=== PATIENT | female | born 1950 | race American Indian/Alaskan Native ===

== ENCOUNTER 2020-12-14 21:15 | Observation (INO) | payer MEDICARE, OTHER ==
[2020-12-14] MEDS ORDERED: SODIUM CHLORIDE 0.9% 500 ML 500 ML IV ONE (21:56)
--- NOTE | 2020-12-14 22:01 | Emergency Department Report ---
ED Syncope HPI - General Chief Complaint: Syncope Stated Complaint: HYPOTENSION/WEAKNESS Time Seen by Provider: 12/14/20 21:44 Source: patient - History of Present Illness Initial Comments: 70 yo F who presents after loss of consciousness today. This was witnessed by her daughter. She states it only occurred for a minute. When she awoke she was pretty normal. Her eyes rolled back which concerned her daughter. They note she did not each much today but had some coffee for breakfast. She was sitting in the garage smoking marijuana with her daughter when this happened. EMS states her BP was low. Timing/Prior Episodes: single episode today Precipitating Factors: Positive: lightheadedness Context: sitting Loss of Consciousness: brief (seconds) Current Symptoms: back to normal - Related Data Allergies/Adverse Reactions: Allergies No Known Allergies Allergy (Verified 12/14/20 22:34) Home Medications: Ambulatory Orders Latanoprost 0.005% [Xalatan 0.005%] 1 drop OP QPM 05/21/15 Losartan [Cozaar] 100 mg PO QDAY 05/21/15 ED Review of Systems ROS: Stated complaint: HYPOTENSION/WEAKNESS Other details as noted in HPI Constitutional: denies: diaphoresis Eyes: denies: eye discharge ENT: denies: dental pain Respiratory: denies: shortness of breath Cardiovascular: denies: chest pain Endocrine: denies: excessive sweating Gastrointestinal: denies: abdominal pain, nausea, vomiting Genitourinary: denies: urgency, dysuria Musculoskeletal: denies: back pain Skin: denies: rash Neurological: denies: headache Psychiatric: denies: anxiety, depression Hematological/Lymphatic: denies: easy bleeding ED Past Medical Hx - Past Medical History Hx Hypertension: Yes Hx Renal Disease: No Hx Arthritis: Yes Additional medical history: CATARACTS - Surgical History Hx Cholecystectomy: Yes - Social History Smoking Status: Former Smoker - Medications Home Medications: Home Medications Medication Instructions Recorded Confirmed Last Taken Type Latanoprost 0.005% [Xalatan 0.005%] 1 drop OP QPM 05/21/15 05/23/15 05/22/15 History Losartan [Cozaar] 100 mg PO QDAY 05/21/15 05/23/15 05/23/15 08:30 History ED Physical Exam - General Limitations: No Limitations General appearance: alert, in no apparent distress - Head Head exam: Present: atraumatic, normocephalic - Eye Eye exam: Present: normal appearance Pupils: Present: normal accommodation - ENT ENT exam: Present: normal exam - Neck Neck exam: Present: normal inspection - Respiratory Respiratory exam: Present: normal lung sounds bilaterally - Cardiovascular Cardiovascular Exam: Present: regular rate, normal rhythm, normal heart sounds - GI/Abdominal GI/Abdominal exam: Present: soft. Absent: distended, tenderness - Rectal Rectal exam: Present: deferred - Extremities Exam Extremities exam: Present: normal inspection, full ROM, normal capillary refill. Absent: tenderness, pedal edema - Back Exam Back exam: Present: normal inspection - Neurological Exam Neurological exam: Present: alert, oriented X3 - Psychiatric Psychiatric exam: Present: normal affect, normal mood - Skin Skin exam: Present: warm, dry, intact ED Course Vital Signs 12/14/20 12/14/20 22:00 22:45 Temperature 97.7 F Pulse Rate 63 Pulse Rate [ 66 Lying] Respiratory 14 Rate Blood Pressure 112/57 [Left] Blood Pressure 105/45 [Lying] O2 Sat by Pulse 97 Oximetry - Reevaluation(s) Reevaluation #1: 12/14/20 23:14 I reevaluated the patient. Her blood pressure is currently 94/36. IV fluids are infusing. We will plan to give patient an additional liter for total of 1.5 L but I do think patient likely to be admitted for IV fluid rehydration and syncopal work-up. Reevaluation #2: 12/15/20 00:00 I reviewed patient's labs which are notable for an elevated creatinine to 1.91 patient's previous was 1.2. Given this and given patient's mild hypotension plan for admission for IV fluid rehydration and further syncope work-up. ED Medical Decision Making - Lab Data Result diagrams: 12/14/20 22:44 12/14/20 22:44 - EKG Data -: EKG Interpreted by Me EKG shows normal: sinus rhythm Rate: normal (61) - EKG Data Interpretation: LVH - Medical Decision Making 70-year-old female with history of hypertension who presents to the emergency department with complaint of syncopal episode. Patient did not eat all day and was smoking marijuana with her daughter prior to the syncopal episode. Lasted approximately 1 minute. EMS arrived they noted the patient's blood pressure was low. Her blood pressure is now normal. Plan to obtain orthostatic blood pressures, EKG, basic labs. Will monitor patient on telemetry. Will reassess after IV fluids and orthostatic pressures to determine if this was just a vasovagal syncope or secondary to dehydration due to lack of p.o. intake. If patient is improved she may be discharged however patient blood pressure drops or complains of feeling lightheaded or dizzy she may require admission for sync opal work-up. Critical care attestation.: If time is entered above; I have spent that time in minutes in the direct care of this critically ill patient, excluding procedure time. ED Disposition Clinical Impression: Syncope, HECTOR (acute kidney injury) Disposition: OP ADMIT IP TO THIS HOSP Is pt being admited?: Yes Does the pt Need Aspirin: No Condition: Stable Instructions: Syncope (ED) Time of Disposition: 00:01
--- NOTE | 2020-12-14 22:33 | XRay Report ---
CHEST 1 VIEW 12/14/2020 9:58 PM INDICATION / CLINICAL INFORMATION: syncope. COMPARISON: None available. FINDINGS: SUPPORT DEVICES: None. HEART / MEDIASTINUM: No significant abnormality. LUNGS / PLEURA: No significant pulmonary or pleural abnormality. No pneumothorax. ADDITIONAL FINDINGS: No significant additional findings. IMPRESSION: No acute abnormality. Signer Name: Mauricio Wilder MD Signed: 12/14/2020 10:28 PM Workstation Name: [id number]
[2020-12-14 23:12] LABS: Basophils # (Auto) 0.1 K/mm3 (0.0-0.1); Basophils % (Auto) 0.7 % (0.0-1.8); Eosinophils # (Auto) 0.1 K/mm3 (0.0-0.4); Eosinophils % (Auto) 1.5 % (0.0-4.3); Hematocrit 34.8 % (30.3-42.9); Lymphocytes # (Auto) 1.8 K/mm3 (1.2-5.4); Lymphocytes % (Auto) 18.3 % (13.4-35.0); Mean Corpuscular HGB Conc 34 % (30-34); Mean Corpuscular Volume 98 fl (79-97); Monocytes # (Auto) 0.7 K/mm3 (0.0-0.8); Monocytes % (Auto) 7.4 % (0.0-7.3); Platelet Count 225 K/mm3 (140-440); Red Blood Count 3.55 M/mm3 (3.65-5.03); Red Cell Distribution Width 14.3 % (13.2-15.2)
[2020-12-14] MEDS ORDERED: SODIUM CHLORIDE 0.9% 1000 ML 1,000 ML IV ONE (23:16)
[2020-12-14 23:33] LABS: Albumin 4.3 g/dL (3.9-5); Calcium 9.7 mg/dL (8.4-10.2)
[2020-12-15] MEDS ORDERED: SENNOSIDES 8.6 MG TAB PO PRN (00:50)
[2020-12-15] MEDS ORDERED: ONDANSETRON 4 MG/2 ML INJ IV PRN (00:50)
[2020-12-15] MEDS ORDERED: MAGNESIUM HYDROXIDE (MOM) ORAL LIQD UDC PO PRN (01:07)
[2020-12-15] MEDS ORDERED: METOCLOPRAMIDE 10 MG/2 ML INJ IV PRN ×2 (01:07→02:59)
[2020-12-15] MEDS ORDERED: ALUM-MAG HYDROXIDE-SIMETHICONE 200-200-20MG/5ML ORAL LIQD 30 ML PO PRN (01:07)
[2020-12-15] MEDS ORDERED: traMADol 50 MG TAB PO PRN (01:15)
[2020-12-15] MEDS ORDERED: traZODone 50 MG TAB PO PRN (01:15)
--- NOTE | 2020-12-15 01:17 | History and Physical Report ---
History of Present Illness Date of examination: 12/15/20 Date of admission: 12/15/20 Chief complaint: DIZZINESS History of present illness: 70 yo F who presents after loss of consciousness today. This was witnessed by her daughter. She states it only occurred for a minute. When she awoke she was pretty normal. Her eyes rolled back which concerned her daughter. They note she did not each much today but had some coffee for breakfast. She was sitting in the garage smoking marijuana with her daughter when this happened. EMS states her BP was low. ED work-up shows WBC 9.6, hemoglobin 12.0, platelets 225, creatinine 1.9, sodium 139, potassium 4.4, troponin 0 0.010, chest x-ray no acute finding, CT of the head no acute intracranial abnormality. Patient seen in ED at bedside. Patient alert oriented x3. Patient said she came due to dizziness syncope. Blood pressure low at the time of admission. Patient was given infection bolus at the time of assessment blood pressure up to 104/52. Patient denies tobacco use alcohol, illicit drug use. Past History Past Medical History: hypertension Past Surgical History: total hip replacement, Other (back surgery) Social history: no significant social history, lives with family Family history: no significant family history Medications and Allergies Allergies Allergy/AdvReac Type Severity Reaction Status Date / Time No Known Allergies Allergy Verified 12/14/20 22:34 Home Medications Medication Instructions Recorded Confirmed Last Taken Type Latanoprost 0.005% [Xalatan 0.005%] 1 drop OP QPM 05/21/15 05/23/15 05/22/15 History Losartan [Cozaar] 100 mg PO QDAY 05/21/15 05/23/15 05/23/15 08:30 History Review of Systems Constitutional: weakness Ears, nose, mouth and throat: no epistaxis, no bleeding gums Cardiovascular: lightheadedness Gastrointestinal: no melena Rectal: no hemorrhoids Neurological: no head injury Psychiatric: anxiety Hematologic/Lymphatic: no easy bruising, no easy bleeding Allergic/Immunologic: no urticaria Exam - Constitutional Vitals: Temp Pulse Resp BP Pulse Ox 97.7 F 69 16 109/53 97 12/14/20 22:00 12/15/20 00:27 12/15/20 00:27 12/15/20 00:27 12/15/20 00:27 General appearance: Present: mild distress, well-nourished - EENT Eyes: Present: PERRL ENT: hearing intact, clear oral mucosa - Neck Neck: Present: supple, normal ROM - Respiratory Respiratory effort: normal Respiratory: bilateral: CTA - Cardiovascular Heart rate: 69 Heart Sounds: Present: S1 & S2. Absent: rub, click - Extremities Extremities: pulses symmetrical, No edema Peripheral Pulses: within normal limits - Abdominal General gastrointestinal: Present: soft, non-tender, non-distended, normal bowel sounds Female genitourinary: Present: normal - Integumentary Integumentary: Present: clear, warm, dry - Musculoskeletal Musculoskeletal: gait normal, strength equal bilaterally - Psychiatric Psychiatric: appropriate mood/affect, intact judgment & insight, cooperative - Neurologic Neurologic: CNII-XII intact, moves all extremities - Allied Health Allied health notes reviewed: nursing, PT HEART Score - HEART Score Troponin: Troponin T < 0.010 ng/mL (0.00-0.029) 12/14/20 22:44 Results - Labs CBC & Chem 7: 12/14/20 22:44 12/14/20 22:44 Labs: Abnormal lab results 12/14/20 12/14/20 Range/Units 22:44 22:44 RBC 3.55 L (3.65-5.03) M/mm3 MCV 98 H (79-97) fl MCH 34 H (28-32) pg Garvin % (Auto) 7.4 H (0.0-7.3) % Seg Neutrophils % 72.1 H (40.0-70.0) % BUN 37 H (7-17) mg/dL Creatinine 1.9 H (0.6-1.2) mg/dL Glucose 133 H (65-100) mg/dL Assessment and Plan - Patient Problems (1) HECTOR (acute kidney injury) Current Visit: No Status: Acute Plan to address problem: Likely secondary to dehydration Monitor kidney function Continue IV hydration Advised to avoid nephrotoxic drugs. (2) Syncope Current Visit: No Status: Acute Plan to address problem: Most likely secondary to dehydration Was given IV bolus with normal saline. Her blood pressure has improved Safety and fall Precaution at all time Echocardiogram follow-up with results CT of the head negative. Check CTA of the neck rule out carotid stenosis (3) Essential (primary) hypertension Current Visit: No Status: Acute Plan to address problem: Patient has history of hypertension Patient blood pressure was low on admission Monitor blood pressure and hold home antihypertensive. (4) Full code status Current Visit: Yes Status: Acute Plan to address problem: Patient is a full code (5) DVT prophylaxis Current Visit: Yes Status: Acute Plan to address problem: Subcutaneous heparin
--- NOTE | 2020-12-15 02:30 | Cat Scan Report ---
CT head/brain wo con INDICATION: syncope. TECHNIQUE: Routine CT head. All CT scans at this location are performed using CT dose reduction for A JOSELITO by means of automated exposure control. COMPARISON: None. FINDINGS: Intracranial: Pierre-white matter differentiation is maintained. No intracranial hemorrhage. No extra a xial collection. No hydrocephalus. No herniation. Sinuses: Paranasal sinuses and mastoid air cells are essentially clear. Orbits: Globes are intact. Calvarium: No acute fracture. IMPRESSION: 1. No acute intracranial abnormality. Signer Name: Vincent Jules MD Signed: 12/15/2020 2:25 AM Workstation Name: [id number]
[2020-12-15] MEDS: D5W/0.9% NACL 1,000 ML IV SCH ×2 (05:33→22:03)
[2020-12-15 06:01] LABS: Bacteria,Urine 2+ /HPF (Negative); Bilirubin,Urine NEG (Negative); Blood,Urine NEG (Negative); Color,Urine Yellow (Yellow); Hyaline Casts,Urine 1 /LPF; Mucus,Urine 1+ /HPF; Protein,Urine <15 mg/dL mg/dL (Negative); Urobilinogen,Urine < 2.0 mg/dL (<2.0)
[2020-12-15] MEDS: HEPARIN 5,000 UNIT/1 ML VIAL SUB-Q SCH ×2 (09:44→22:03)
[2020-12-15] MEDS ORDERED: LOSARTAN 50 MG TAB PO SCH (10:00)
[2020-12-15] MEDS ORDERED: NON-FORMULARY EACH (Losartan [Cozaar] 100 MG Tablet) PO SCH (10:00)
--- NOTE | 2020-12-15 11:07 | Event Note ---
Date: 12/15/20 Brief progress note Patient seen and examined History obtained She is alert and oriented and offers no specific complaints This is the second IMS visit of the day Lab results reviewed Denies any symptoms preceding syncope She smokes marijuana 3-4 times a week States she sees Dr. Fields for her hypertension but is not aware of having renal disease Nephrology and cardiology consulted Telemetry Troponin x2 -
--- NOTE | 2020-12-15 11:32 | Consultation ---
History of Present Illness Consult date: 12/15/20 Requesting physician: MEMO BUNN Consult reason: syncope History of present illness: 70-year-old female with hypertension smokes marijuana was smoking marijuana with her daughter in the garage had a fan going. Patient felt lightheadedness and as per the daughter eyes rolled back and passed out. Patient when she woke up knew where she was at but was weak and could not get up. EMS was called found to be hypotensive patient start IV fluids. Patient this morning is feeling much better found to have renal sufficiency creatinine 1.9 unclear if this is new or old. Denies any chest pain shortness of breath. Patient does state lack of intake for the last few days. No fever no chills was vaccinated with the COVID- 19 Past History Past Medical History: hypertension Past Surgical History: total hip replacement, Other (back surgery) Social history: no significant social history, lives with family Family history: no significant family history Medications and Allergies Allergies Allergy/AdvReac Type Severity Reaction Status Date / Time No Known Allergies Allergy Verified 12/14/20 22:34 Home Medications Medication Instructions Recorded Confirmed Last Taken Type Latanoprost 0.005% [Xalatan 0.005%] 1 drop OP QPM 05/21/15 05/23/15 05/22/15 History Losartan [Cozaar] 100 mg PO QDAY 05/21/15 05/23/15 05/23/15 08:30 History Active Meds: Active Medications Acetaminophen (Acetaminophen 325 Mg Tab) 650 mg PO Q4H PRN PRN Reason: Pain MILD(1-3)/Fever >100.5/BLACKMAN Al Hydrox/Mg Hydrox/Simethicone (Alum-Mag Hydroxide-Simethicone [id number]/5ml Oral Liqd 30 Ml) 30 ml PO Q4H PRN PRN Reason: Indigestion Heparin Sodium (Porcine) (Heparin 5,000 Unit/1 Ml Vial) 5,000 unit SUB-Q Q12HR GISELE Last Admin: 12/15/20 09:44 Dose: 5,000 unit Documented by: Dextrose/Sodium Chloride (D5ns) 1,000 mls @ 75 mls/hr IV DIRECT GISELE Last Admin: 12/15/20 05:33 Dose: 75 mls/hr Documented by: Latanoprost (Latanoprost 0.005% Ophth Soln 2.5 Ml) 1 drops OU QPM GISELE Magnesium Hydroxide (Magnesium Hydroxide (Mom) Oral Liqd Udc) 30 ml PO Q4H PRN PRN Reason: Constipation Metoclopramide HCl (Metoclopramide 10 Mg/2 Ml Inj) 5 mg IV Q6H PRN PRN Reason: Nausea And Vomiting Ondansetron HCl (Ondansetron 4 Mg/2 Ml Inj) 4 mg IV Q8H PRN PRN Reason: Nausea And Vomiting Senna (Sennosides 8.6 Mg Tab) 8.6 mg PO Q12HR PRN PRN Reason: Constipation Sodium Chloride (Sodium Chloride 0.9% 10 Ml Flush Syringe) 10 ml IV PRN PRN PRN Reason: LINE FLUSH Tramadol HCl (Tramadol 50 Mg Tab) 50 mg PO Q6H PRN PRN Reason: Pain, Moderate (4-6) Trazodone HCl (Trazodone 50 Mg Tab) 50 mg PO QHS PRN PRN Reason: Insomnia Review of Systems All systems: negative (As per the HPI) Physical Examination Vital Signs Temp Pulse Resp BP Pulse Ox 97.7 F 63 14 112/57 97 12/14/20 22:00 12/14/20 22:00 12/14/20 22:00 12/14/20 22:00 12/14/20 22:00 General appearance: no acute distress, well-nourished HEENT: Positive: PERRL, Mucus Membranes Moist Neck: Positive: neck supple, trachea midline Cardiac: Positive: Reg Rate and Rhythm, S1/S2. Negative: Audible Murmur Lungs: Positive: clear to auscultation, Normal Breath Sounds Neuro: Positive: Grossly Intact Abdomen: Positive: Soft, Active Bowel Sounds. Negative: Tender, Distended Female genitourinary: deferred Skin: Positive: Clear Incision: Cardiac Cath Site Musculoskeletal: No Pain, Normal Range of Motion Extremities: Present: normal. Absent: edema Results 12/14/20 22:44 12/14/20 22:44 Cardiac Enzymes 12/14/20 Range/Units 22:44 AST 16 (5-40) units/L CBC 12/14/20 Range/Units 22:44 WBC 9.6 (4.5-11.0) K/mm3 RBC 3.55 L (3.65-5.03) M/mm3 Hgb 12.0 (10.1-14.3) gm/dl Hct 34.8 (30.3-42.9) % Plt Count 225 (140-440) K/mm3 Lymph # (Auto) 1.8 (1.2-5.4) K/mm3 Lee # (Auto) 0.7 (0.0-0.8) K/mm3 Eos # (Auto) 0.1 (0.0-0.4) K/mm3 Baso # (Auto) 0.1 (0.0-0.1) K/mm3 Comprehensive Metabolic Panel 12/14/20 Range/Units 22:44 Sodium 139 (137-145) mmol/L Potassium 4.4 (3.6-5.0) mmol/L Chloride 105.5 (98-107) mmol/L Carbon Dioxide 22 (22-30) mmol/L BUN 37 H (7-17) mg/dL Creatinine 1.9 H (0.6-1.2) mg/dL Glucose 133 H (65-100) mg/dL Calcium 9.7 (8.4-10.2) mg/dL AST 16 (5-40) units/L ALT 10 (7-56) units/L Alkaline Phosphatase 70 (35-129) units/L Total Protein 6.5 (6.3-8.2) g/dL Albumin 4.3 (3.9-5) g/dL Assessment and Plan 70-year-old female with hypertension unclear acute or chronic renal sufficiency had vasovagal syncope we will get an echocardiogram no arrhythmias on the monitor need EKG patient is not orthostatic agree with IV hydration - Patient Problems (1) Marijuana smoker Current Visit: Yes Status: Chronic (2) HECTOR (acute kidney injury) Current Visit: No Status: Acute (3) Essential (primary) hypertension Current Visit: No Status: Chronic (4) Syncope Current Visit: No Status: Acute Qualifiers: Syncope type: vasovagal syncope Qualified Code(s): R55 - Syncope and collapse
[2020-12-15] MEDS: ACETAMINOPHEN 325 MG TAB PO PRN (13:50)
[2020-12-15] MEDS ORDERED: LATANOPROST 0.005% OPHTH SOLN 2.5 ML OU SCH (18:00)
[2020-12-16 06:01] LABS: Basophils # (Auto) 0.1 K/mm3 (0.0-0.1); Basophils % (Auto) 1.1 % (0.0-1.8); Eosinophils # (Auto) 0.3 K/mm3 (0.0-0.4); Eosinophils % (Auto) 3.6 % (0.0-4.3); Hematocrit 31.7 % (30.3-42.9); Hemoglobin 10.7 gm/dl (10.1-14.3); Lymphocytes # (Auto) 3.7 K/mm3 (1.2-5.4); Lymphocytes % (Auto) 40.2 % (13.4-35.0); Mean Corpuscular HGB Conc 34 % (30-34); Mean Corpuscular Volume 98 fl (79-97); Monocytes # (Auto) 0.6 K/mm3 (0.0-0.8); Monocytes % (Auto) 6.8 % (0.0-7.3); Platelet Count 225 K/mm3 (140-440); Red Blood Count 3.25 M/mm3 (3.65-5.03)
[2020-12-16 06:19] LABS: Calcium 8.8 mg/dL (8.4-10.2)
[2020-12-16] MEDS: D5W/0.9% NACL 1,000 ML IV SCH (09:25)
[2020-12-16] MEDS: ACETAMINOPHEN 325 MG TAB PO PRN (09:25)
[2020-12-16] MEDS: HEPARIN 5,000 UNIT/1 ML VIAL SUB-Q SCH (09:27)
--- NOTE | 2020-12-16 09:55 | Consultation ---
History of Present Illness - Reason for Consult Consult date: 12/16/20 acute renal failure, chronic renal failure Requesting physician: MEMO BUNN - History of Present Illness This is a 70 yo F with past medical history of hypertension, obesity, CKD stage 3a with baseline Cr around 1.2-1.4mg/dl, follows up with Dr Fields in our group, who presents with an episode of loss of consciousness for about a minute, which was witnessed by her daughter, with her eyes rolling back. As per daughter, she was sitting in the garage smoking marijuana with her daughter when this happened. EMS states her BP was low. In ER patient was found to have borderline low BP at 105/45mmHg, received IVF bolus. Chest x-ray no acute finding, CT of the head no acute intracranial abnormality. Labs showed elevated BUN/Cr at 37/1.9mg/dl. renal consult is requested for management of HECTOR on CKD Past History Past Medical History: hypertension Past Surgical History: total hip replacement, Other (back surgery) Social history: no significant social history, lives with family Family history: no significant family history Medications and Allergies Allergies Allergy/AdvReac Type Severity Reaction Status Date / Time No Known Allergies Allergy Verified 12/14/20 22:34 Home Medications Medication Instructions Recorded Confirmed Last Taken Type Losartan [Cozaar] 100 mg PO QDAY 05/21/15 05/23/15 05/23/15 08:30 History Acetaminophen [Acetaminophen TAB] 650 mg PO Q4H PRN tablet 12/16/20 Unknown Rx Amlodipine Besylate [Norvasc] 10 mg PO DAILY 12/16/20 12/16/20 12/15/20 08:00 H istory Aspirin [Aspirin BABY CHEW TAB] 81 mg PO QDAY 12/16/20 12/16/20 12/15/20 08:00 History Latanoprost 0.005% 1 drops OU QPM bottle 12/16/20 Unknown Rx buPROPion HCL [Bupropion HCl Sr] 150 mg PO BID 12/16/20 12/16/20 12/15/20 08:00 History Active Meds: Active Medications Acetaminophen (Acetaminophen 325 Mg Tab) 650 mg PO Q4H PRN PRN Reason: Pain MILD(1-3)/Fever >100.5/BLACKMAN Last Admin: 12/16/20 09:25 Dose: 650 mg Documented by: Al Hydrox/Mg Hydrox/Simethicone (Alum-Mag Hydroxide-Simethicone [id number]/5ml Oral Liqd 30 Ml) 30 ml PO Q4H PRN PRN Reason: Indigestion Heparin Sodium (Porcine) (Heparin 5,000 Unit/1 Ml Vial) 5,000 unit SUB-Q Q12HR GISELE Last Admin: 12/16/20 09:27 Dose: 5,000 unit Documented by: Dextrose/Sodium Chloride (D5ns) 1,000 mls @ 75 mls/hr IV DIRECT GISELE Last Admin: 12/16/20 09:25 Dose: 75 mls/hr Documented by: Latanoprost (Latanoprost 0.005% Ophth Soln 2.5 Ml) 1 drops OU QPM GISELE Last Admin: 12/15/20 19:37 Dose: Not Given Documented by: Magnesium Hydroxide (Magnesium Hydroxide (Mom) Oral Liqd Udc) 30 ml PO Q4H PRN PRN Reason: Constipation Metoclopramide HCl (Metoclopramide 10 Mg/2 Ml Inj) 5 mg IV Q6H PRN PRN Reason: Nausea And Vomiting Ondansetron HCl (Ondansetron 4 Mg/2 Ml Inj) 4 mg IV Q8H PRN PRN Reason: Nausea And Vomiting Senna (Sennosides 8.6 Mg Tab) 8.6 mg PO Q12HR PRN PRN Reason: Constipation Sodium Chloride (Sodium Chloride 0.9% 10 Ml Flush Syringe) 10 ml IV PRN PRN PRN Reason: LINE FLUSH Last Admin: 12/16/20 09:25 Dose: 10 ml Documented by: Tramadol HCl (Tramadol 50 Mg Tab) 50 mg PO Q6H PRN PRN Reason: Pain, Moderate (4-6) Trazodone HCl (Trazodone 50 Mg Tab) 50 mg PO QHS PRN PRN Reason: Insomnia Review of Systems All systems: negative Constitutional: fatigue, weakness Exam - Vital Signs Vital signs: Vital Signs Temp Pulse Resp BP Pulse Ox 97.7 F 63 14 112/57 97 12/14/20 22:00 12/14/20 22:00 12/14/20 22:00 12/14/20 22:00 12/14/20 22:00 - General Appearance General appearance: well-developed, well-nourished, appears stated age EENT: ATNC, PERRL, mucous membranes moist Neck: Present: neck supple Respiratory: Clear to Ascultation Heart: regular, S1S2 Gastrointestinal: Present: normoactive bowel sounds Integumentary: no rash, other (no edema ) Neurologic: no focal deficit, alert and oriented x3, strength 5/5, CN 3-12 intact Psychiatric: mood/affect appropriate, cooperative Results - Lab Results 12/16/20 04:30 12/16/20 04:30 Most recent lab results Calcium 8.8 mg/dL (8.4-10.2) 12/16/20 04:30 Assessment and Plan - Patient Problems (1) Acute kidney injury Current Visit: Yes Status: Acute Plan to address problem: likely secondary to pre-renal azotemia in the setting of dehydration, decreased po intake. Renal function improved promptly after IVF with Cr down to 1.1mg/dl better than her recent baseline renal function. Cont to avoid further nephroto xins, NSAIDs, IV contrast. Pt is otherwise stable to be discharged from renal stand point with outpatient f/u in [address] Fields (2) Hypertensive chronic kidney disease with stage 1 through stage 4 chronic kidney disease, or unspecified chronic kidney disease Current Visit: Yes Status: Acute Plan to address problem: Monitor BP on current meds (3) Chronic kidney disease, stage 3a Current Visit: Yes Status: Acute Plan to address problem: likely secondary to underlying hypertensive nephrosclerosis. stable, no further work up required (4) Syncope Current Visit: Yes Status: Acute Plan to address problem: likely 2/2 dehydration, mental status back to baseline
--- NOTE | 2020-12-16 10:19 | Discharge Summary ---
Providers - Providers Date of Admission: 12/15/20 01:37 Date of discharge: 12/16/20 Attending physician: MEMO BUNN 12/15/20 08:22 Consult to Physician [CONS] Routine Comment: Consulting Provider: BERNICE TORRES Physician Instructions: Reason For Exam: syncope 12/15/20 11:02 Consult to Physician [CONS] Routine Comment: Consulting Provider: CONTRERAS ARREOLA Physician Instructions: Reason For Exam: ?HECTOR vs CKD Primary care physician: DEVELOPMENT INTERN Hospitalization Reason for admission: Syncope Condition: Stable Hospital course: 70-year-old female with hypertension smokes marijuana was smoking marijuana with her daughter in the garage had a fan going. Patient felt lightheadedness and as per the daughter eyes rolled back and passed out. Patient when she woke up knew where she was at but was weak and could not get up. EMS was called found to be hypotensive patient start IV fluids. Patient this morning is feeling much better found to have renal sufficiency creatinine 1.9 unclear if this is new or old. Denies any chest pain shortness of breath. Patient does state lack of intake for the last few days. No fever no chills was vaccinated with the COVID- 19 12/16 patient is alert and oriented and feels better, offers no specific complaints, cardiology and nephrology notes reviewed Lab results reviewed. She is medically stable for discharge. Discussed with cardiology . Will discharge patient today after IV magnesium supplement Assessment Syncope Likely vasovagal Cardiology note reviewed No further recommendations Hypokalemia Improved after supplements Hypomagnesemia Improved Acute kidney injury Improved with IV fluids Hypertension Well-controlled Disposition: DC-01 TO HOME OR SELFCARE Final Discharge Diagnosis (Prints w/discharge instructions): Syncope Time spent for discharge: 38 minutes Core Measure Documentation - Palliative Care Palliative Care/ Comfort Measures: Not Applicable - Core Measures Any of the following diagnoses?: none Exam - Constitutional Vitals: Temp Pulse Resp BP Pulse Ox 98.0 F 83 18 139/69 100 12/16/20 09:18 12/16/20 09:18 12/16/20 09:18 12/16/20 09:18 12/16/20 09:18 General appearance: Present: no acute distress, cachectic - EENT Eyes: Present: PERRL, EOM intact ENT: hearing intact, clear oral mucosa - Neck Neck: Present: normal ROM. Absent: masses or JVD - Respiratory Respiratory effort: normal Respiratory: bilateral: CTA - Cardiovascular Rhythm: regular Heart Sounds: Present: S1 & S2 - Extremities Extremities: No edema - Abdominal General gastrointestinal: Present: soft, non-tender Female genitourinary: Present: deferred - Rectal Rectal Exam: deferred - Integumentary Integumentary: Present: clear - Musculoskeletal Musculoskeletal: strength equal bilaterally - Psychiatric Psychiatric: appropriate mood/affect - Neurologic Neurologic: no focal deficits Plan Activity: advance as tolerated Weight Bearing Status: Weight Bear as Tolerated Diet: regular, low salt Follow up with: PRIMARY CARE, [Primary Care Provider] - 7 Days MERRITT WILKINSON DO [Staff Physician] - 7 Days
--- NOTE | 2020-12-16 10:44 | Progress Note ---
Assessment and Plan 70-year-old female with hypertension who renal function improved with iv fluids, acute renal failure and syncope secondary to dehydration requiring iv fluids - Patient Problems (1) Marijuana smoker Current Visit: Yes Status: Chronic (2) HECTOR (acute kidney injury) Current Visit: No Status: Inactive (3) Essential (primary) hypertension Current Visit: No Status: Chronic (4) Syncope Current Visit: No Status: Inactive Qualifiers: Syncope type: vasovagal syncope Qualified Code(s): R55 - Syncope and collapse Subjective Date of service: 12/16/20 Principal diagnosis: syncope Interval history: feeling well Objective Vital Signs Temp Pulse Resp BP BP Pulse Ox 12/16/20 09:18 98.0 F 83 18 139/69 100 12/16/20 08:50 98.0 F 67 18 137/40 100 12/16/20 07:16 97.9 F 64 16 118/46 100 12/16/20 02:05 87 12/15/20 23:16 98.1 F 77 16 130/63 99 12/15/20 19:26 98.1 F 74 16 121/44 97 12/15/20 19:00 74 12/15/20 11:00 74 - Physical Examination General: Appears Well HEENT: Positive: PERRL, Mucus Membranes Moist Neck: Positive: neck supple, trachea midline Cardiac: Positive: Reg Rate and Rhythm Lungs: Positive: clear to auscultation Neuro: Positive: Grossly Intact Abdomen: Positive: Soft, Active Bowel Sounds. Negative: Tender, Distended Skin: Positive: Clear Incision: Cardiac Cath Site Musculoskeletal: No Pain, Normal Range of Motion Extremities: Present: normal. Absent: edema - Labs and Meds CBC 12/16/20 Range/Units 04:30 WBC 9.3 (4.5-11.0) K/mm3 RBC 3.25 L (3.65-5.03) M/mm3 Hgb 10.7 (10.1-14.3) gm/dl Hct 31.7 (30.3-42.9) % Plt Count 225 (140-440) K/mm3 Lymph # (Auto) 3.7 (1.2-5.4) K/mm3 Saunders # (Auto) 0.6 (0.0-0.8) K/mm3 Eos # (Auto) 0.3 (0.0-0.4) K/mm3 Baso # (Auto) 0.1 (0.0-0.1) K/mm3 Comprehensive Metabolic Panel 12/16/20 Range/Units 04:30 Sodium 143 (137-145) mmol/L Potassium 4.3 (3.6-5.0) mmol/L Chloride 112.8 H (98-107) mmol/L Carbon Dioxide 21 L (22-30) mmol/L BUN 20 H (7-17) mg/dL Creatinine 1.1 (0.6-1.2) mg/dL Glucose 99 (65-100) mg/dL Calcium 8.8 (8.4-10.2) mg/dL - Imaging and Cardiology Echo: report reviewed (normal lv funciton no signficant reguritations) - Telemetry EKG Rhythm: Sinus Rhythm
[2020-12-16 11:35] VITALS: BP 119/59
--- NOTE | 2020-12-18 17:42 | Electrocardiograph Report ---
[facility] Test Date: 2020-12-16 Test Time: 08:06:22 Pat Name: FAN BLAND Department: Room: A452 1 Gender: F Quality Officer: NATALY : 1950 Requested By: BERNICE TORRES Order Number: [id number] Reading MD: Ary Espana Measurements Intervals [place] Rate: 65 P: 69 MA: 208 QRS: -28 QRSD: 97 T: 77 QT: 411 QTc: 428 Interpretive Statements Sinus rhythm No previous ECG available for comparison Electronically Signed On 12-18-2020 17:41:44 EDT by Ary Espana
--- NOTE | 2020-12-19 10:56 | Electrocardiograph Report ---
[facility] Test Date: 2020-12-14 Test Time: 22:17:41 Pat Name: FAN BLAND Department: Room: A452 1 Gender: F Automatic Chief: BULL : 1950 Requested By: DENYS VALENTIN Order Number: [id number] Reading MD: Geovany Decker Measurements Intervals [place] Rate: 61 P: 61 PA: 189 QRS: -27 QRSD: 107 T: 71 QT: 438 QTc: 442 Interpretive Statements Sinus rhythm LVH with secondary repolarization abnormality No previous ECG available for comparison Electronically Signed On 12-19-2020 10:55:59 EDT by Geovany Decker
== END 2020-12-16 14:00 | disposition home or self-care (01) ==
LOC: ED 21:15 → 4A 12-15 01:37 → INTOOBSV 12-15 01:37
PROVIDERS: ADMIT Hospitalist; ATTEND Internal Medicine
DX: N17.9 Acute kidney failure, unspecified (principal); R55 Syncope and collapse; I12.9 Hypertensive chronic kidney disease with stage 1 through stage 4 chronic kidney disease, or unspecified chronic kidney disease; N18.31 Chronic kidney disease, stage 3a; M19.90 Unspecified osteoarthritis, unspecified site; F12.10 Cannabis abuse, uncomplicated; Z79.899 Other long term (current) drug therapy; Z98.890 Other specified postprocedural states; Z96.649 Presence of unspecified artificial hip joint; Z98.49 Cataract extraction status, unspecified eye; Z87.891 Personal history of nicotine dependence
CPT/HCPCS: 36415; 70450; 71045; 80048; 80053; 81001; 84484; 85025; 93005; 93306; 96360; 96361; 96372; 99285; G0378; J1644; J7030; J7040; J7042